=== PATIENT | female | born 1960 | race African-American/Black ===

== ENCOUNTER → 2018-02-24 | Day surgery (SDC) | payer BC ==
[~2018-02-24] MED LIST: ALEVE220 M1 PO; BC ARTHRITIS P1 EACH PO; FENTANYL CITRATE/PF 100MCG/2 ML INJ ONE; MIDAZOLAM HCL 2 MG/2 ML VIAL ONE; PANTOPRAZOLE SO40 MG PO; PROPOFOL IV EMULSION 10 MG/ML 20 ML VIAL ONE
--- NOTE | 2018-02-24 13:05 | Operative Report ---
DATE OF PROCEDURE: February 24, 2018 PROCEDURE PERFORMED: Esophagogastroduodenoscopy. PREOPERATIVE DIAGNOSIS: Chronic recurrent gastroesophageal reflux disease. POSTOPERATIVE DIAGNOSIS 1. Hiatal hernia. 2. Reflux esophagitis. 3. Gastritis. MEDICATION: Preoperative medication consisted of MAC anesthesia. PROCEDURE: Using the Olympus Poikos video gastroscope, it was inserted into the patient's oropharynx, advanced into the hypopharynx and down into the esophagus. The mucosal pattern in the esophagus was normal. There was evidence of a hiatal hernia of fixed type from 37 down to 39 cm with the reflux esophagitis right above the GE junction. Biopsies were obtained to rule out Mayo's esophagus. The stomach was entered and insufflated with air. The mucosal pattern in the cardia, fundus, body and the antrum was viewed. There was evidence of a gastritis down in the antrum of the stomach, no evidence of any ulcerations. The rest of the stomach appeared to be normal. Biopsies were obtained in the antrum, looking for the H. pylori infection. The motility was normal. The pylorus was visualized and entered, and the duodenal bulb and postbulbar duodenum were found to be within normal limits. The endoscope was then withdrawn back up into the stomach. The endoscope was then retroflexed, viewing the cardia and fundus from below. Again a hiatal hernia of fixed type was noted. The endoscope was then placed back into the body of the stomach and then slowly drawn back up into the esophagus, hypopharynx, oropharynx and out of the patient's mouth, and the procedure was ended. In conclusion, we have a finding of a gastritis down in the antrum. A biopsy was obtained looking for H. pylori. A hiatal hernia of fixed type was seen with a reflux esophagitis above it. Job#: [id number]
== END | disposition home or self-care (01) ==
LOC: OR 07:58
PROVIDERS: ATTEND Internal Medicine Gastroenterology
DX: K29.70 Gastritis, unspecified, without bleeding (principal); K21.0 Gastro-esophageal reflux disease with esophagitis; K44.9 Diaphragmatic hernia without obstruction or gangrene; K59.00 Constipation, unspecified; Z79.82 Long term (current) use of aspirin; Z68.43 Body mass index [BMI] 50.0-59.9, adult; Z80.0 Family history of malignant neoplasm of digestive organs
CPT/HCPCS: 43239; 93005; J2250